=== PATIENT | female | born 1955 | race Caucasian/White ===

== ENCOUNTER 2020-10-17 11:49 | Outpatient (CLI) | payer MEDICARE | END 2020-10-17 11:50 | disposition home or self-care (01) | LOC: BURRAD 11:49 | PROVIDERS: ATTEND Family Medicine | DX: R89.9 Unspecified abnormal finding in specimens from other organs, systems and tissues (principal) | CPT/HCPCS: 71046 ==

== ENCOUNTER 2021-04-27 11:01 | Outpatient (CLI) | payer MEDICARE | END 2021-04-27 11:02 | disposition home or self-care (01) | LOC: BURRAD 11:01 | PROVIDERS: ATTEND Family Medicine | DX: R76.12 Nonspecific reaction to cell mediated immunity measurement of gamma interferon antigen response without active tuberculosis (principal) | CPT/HCPCS: 71046 ==